=== PATIENT | male | born 1940 | race Caucasian/White ===

== ENCOUNTER 2016-10-11 09:19 | Emergency (ER) | payer OTHER ==
[~2016-10-11] VITALS: Ht 172.7 cm; Wt 85.7 kg
[2016-10-11] MEDS ORDERED: SERT25TA88 (09:36)
[2016-10-11] MEDS ORDERED: PRIM50TA6 (09:36)
[2016-10-11] MEDS ORDERED: PRAV40TA2 (09:36)
[2016-10-11] MEDS ORDERED: QUIN5TAB7 (09:36)
[2016-10-11] MEDS ORDERED: ISOS30TA4 (09:36)
[2016-10-11] MEDS ORDERED: ONDANSETRON 4 MG ORAL DISINTEGRATING TAB (S0181) PO ONE (11:00)
[2016-10-11] MEDS ORDERED: MORPHINE 4 MG/ML 1ML SYRINGE SC ONE (11:00)
--- NOTE | 2016-10-11 12:13 | REP ---
REASON: Trauma. COMPARISON: Chest 12/31/2010. Multiple views of the right ribs show a fracture involving the lateral aspect of the right 9th rib. The accompanying frontal view of the chest shows mild bilateral CP angle blunting due to low lung volumes possibly from splinting due to rib pain. There is no pneumothorax. IMPRESSION: Right 9th rib fracture. Signed by Henry Brennan DO 10/11/2016 03:58 P
[2016-10-11] MEDS ORDERED: NORCOTAB PO (12:22)
[2016-10-11 12:29] VITALS: BP 115/66
== END 2016-10-11 12:45 | disposition home or self-care (01) ==
LOC: M ED 10:22
DX: S22.31XA Fracture of one rib, right side, initial encounter for closed fracture (principal); W17.2XXA Fall into hole, initial encounter; Y92.019 Unspecified place in single-family (private) house as the place of occurrence of the external cause; Y93.89 Activity, other specified; Y99.8 Other external cause status; I11.0 Hypertensive heart disease with heart failure; F32.9 Major depressive disorder, single episode, unspecified; Z79.899 Other long term (current) drug therapy; Z88.0 Allergy status to penicillin

== ENCOUNTER 2018-03-21 09:37 | Day surgery (SDC) | payer OTHER ==
[2018-03-21] MEDS ORDERED: LR 1,000 ML IV ×3 (10:15→13:30)
[2018-03-21 10:25] LABS: HEMATOCRIT 44.4 % (42.0-52.0); MEAN CORPUSCULAR HEMOGLOBIN 31.5 pg (27.0-33.0); MEAN CORPUSCULAR HGB CONC 33.8 g/dl (32.0-36.5); MEAN CORPUSCULAR VOLUME 93.3 fl (80.0-96.0); PLATELET COUNT, AUTOMATED 157 10^3/uL (150-450); RED BLOOD COUNT 4.76 10^6/uL (4.30-6.10); RED CELL DISTRIBUTION WIDTH 12.2 % (11.5-14.5); WHITE BLOOD COUNT 4.8 10^3/uL (4.0-10.0)
[2018-03-21 10:47] LABS: ALBUMIN/GLOBULIN RATIO 1.29 (1.00-1.93); ALKALINE PHOSPHATASE 54 U/L (45-117); ALT/SGPT 17 U/L (12-78); ANION GAP 6 MEQ/L (8-16); AST/SGOT 24 U/L (7-37); BILIRUBIN,TOTAL 0.5 MG/DL (0.2-1.0); BLOOD UREA NITROGEN 18 MG/DL (7-18); CALCIUM LEVEL 9.6 MG/DL (8.8-10.2); CARBON DIOXIDE LEVEL 26 MEQ/L (21-32); CHLORIDE LEVEL 106 MEQ/L (98-107); CREATININE FOR GFR 1.14 MG/DL (0.70-1.30); GLOMERULAR FILTRATION RATE > 60.0 (>42); GLUCOSE, FASTING 96 MG/DL (70-100); POTASSIUM SERUM 4.2 MEQ/L (3.5-5.1); SODIUM LEVEL 138 MEQ/L (136-145); TOTAL PROTEIN 7.1 GM/DL (6.4-8.2)
[2018-03-21] MEDS ORDERED: PROPOFOL 200 MG/20 ML VIAL As Ordered (11:13)
[2018-03-21] MEDS ORDERED: fentaNYL 100 MCG/2 ML INJECTION (J3010) As Ordered ×2 (11:13→11:14)
[2018-03-21] MEDS ORDERED: dexameTHASONE 4 MG/ML 1ML VIAL (J1100) As Ordered (11:13)
[2018-03-21] MEDS ORDERED: ROCURONIUM BROMIDE 50 MG/5 ML VIAL As Ordered (11:13)
[2018-03-21] MEDS ORDERED: LIDOCAINE 2% INJ 100 MG/5 ML SDV (FOR ANES.) As Ordered (11:14)
[2018-03-21] MEDS: EPINEPHrine 1MG/ML INJ 30ML MD-VIAL As Ordered (12:32)
[2018-03-21] MEDS: METHYLENE BLUE 0.5% (5MG/ML) 10 ML AMP (PROVAYBLUE)(Q9968 PER 1MG) As Ordered (12:33)
[2018-03-21] MEDS: LIDOCAINE W/EPINEPHRINE 1% 20ML VIAL As Ordered (12:40)
[2018-03-21] MEDS ORDERED: METOCLOPRAMIDE INJ 10MG/2ML VIAL (J2765) IV (13:30)
[2018-03-21] MEDS ORDERED: ONDANSETRON 4MG/2ML VIAL (J2405) IV (13:30)
[2018-03-21] MEDS ORDERED: PERCOCET 5MG/325MG TAB PO (13:30)
[2018-03-21] MEDS ORDERED: fentaNYL 100 MCG/2 ML INJECTION (J3010) IV (13:30)
[2018-03-21] MEDS ORDERED: ACETAMINOPH W/CODEINE #3 TAB UD PO (13:30)
== END 2018-03-21 14:46 | disposition home or self-care (01) ==
LOC: M SDC 09:37
DX: J34.2 Deviated nasal septum (principal); J31.0 Chronic rhinitis; M95.0 Acquired deformity of nose; I10 Essential (primary) hypertension; I25.10 Atherosclerotic heart disease of native coronary artery without angina pectoris; I25.2 Old myocardial infarction; E78.00 Pure hypercholesterolemia, unspecified; K21.9 Gastro-esophageal reflux disease without esophagitis; M12.9 Arthropathy, unspecified; F41.9 Anxiety disorder, unspecified; F32.9 Major depressive disorder, single episode, unspecified; R51 Headache; J44.9 Chronic obstructive pulmonary disease, unspecified; R06.83 Snoring; G47.30 Sleep apnea, unspecified; R06.09 Other forms of dyspnea; Z88.0 Allergy status to penicillin; Z79.899 Other long term (current) drug therapy; Z79.82 Long term (current) use of aspirin; Z95.5 Presence of coronary angioplasty implant and graft; Z98.41 Cataract extraction status, right eye; Z98.42 Cataract extraction status, left eye; Z96.1 Presence of intraocular lens; Z87.891 Personal history of nicotine dependence
CPT/HCPCS: 30520

== ENCOUNTER → 2018-12-06 | Outpatient (CLI) | payer MEDICARE ==
[~2018-12-06] MED LIST: ASPI81TA85 PO; HYDR-3715 PO; IBUPROPHEN PO; ISOS30TA4 PO; PRAV40TA2; PRIM50TA6 PO; QUIN1TAB PO; ROSU5TAB5 PO; SERT25TA88 PO
--- NOTE | 2018-12-07 08:56 | REP ---
CT of the maxillofacial bones without contrast Indication: Sinusitis. Comparison: CT of the maxillofacial bones without contrast of 10/25/2017. Findings: There is overall improvement of mild mucosal thickening of the paranasal sinuses. Frontal sinuses: There is mild mucosal thickening of the right frontal sinus and frontoethmoid recess, improved. The left frontal sinus is clear. There is mild mucosal thickening of the left frontal ethmoid recess, improved. Ethmoid air cells: The right anterior ethmoid air cells are clear, improved. There is mild mucosal thickening of the left anterior ethmoid air cells, improved. The posterior ethmoid air cells are clear bilaterally, improved. The cribriform plate, medial borges of the orbits and optic canals are intact. Sphenoid sinuses: The right sphenoid sinus is clear, improved. There is mild mucosal thickening of the left sphenoid sinus, improved. The septum of the sphenoid sinus inserts in the midline. The internal carotid canal borges form a segment of the posterior lateral borges of the sphenoid sinus. Maxillary sinuses: There is minimal mucosal thickening of the left ostiomeatal unit, patent. There is mucosal thickening of the right ostiomeatal unit. The maxillary sinuses are clear bilaterally. Nasal septum: There is a mild rightward curvature of the nasal septum. The turbinates are intact. There is partial opacification of the right mastoid air cells superiorly, similar to prior. The left mastoid air cells are clear. Impression: Mild residual mucosal thickening of the paranasal sinuses. Electronically Signed by Butch Milan MD 12/07/2018 08:48 A
== END ==
LOC: M RAD 17:41
PROVIDERS: ATTEND Otolaryngology
DX: J32.4 Chronic pansinusitis (principal)

== ENCOUNTER → 2019-09-27 | Outpatient (CLI) | payer MEDICARE ==
[~2019-09-27] MED LIST changes: +SERT25TA21 PO; -SERT25TA88 PO
--- NOTE | 2019-09-27 14:30 | REPVR ---
PROCEDURE INFORMATION: Exam: CT Maxillofacial Without Contrast, Sinus Exam date and time: 09/27/2019 2:08 PM Age: 78 years old Clinical indication: Sinusitis; Chronic; Additional info: Chronic pansinusitis TECHNIQUE: Imaging protocol: CT Maxillofacial without contrast. Focus on the sinuses. Radiation optimization: All CT scans at this facility use at least one of these dose optimization techniques: automated exposure control; mA and/or kV adjustment per patient size (includes targeted exams where dose is matched to clinical indication); or iterative reconstruction. COMPARISON: CT Maxilofacial w/out contrast 12/06/2018 6:03 PM FINDINGS: Frontal sinuses: Normal. No air-fluid levels. Ethmoid air cells: Normal. No air-fluid levels. Sphenoid sinuses: Normal. No air-fluid levels. Maxillary sinuses: Normal. No air-fluid levels. Ostiomeatal units are patent. Orbits: Unremarkable. Nasal cavity/Septum: Unremarkable. Soft tissues: Unremarkable. Bones/joints: Unremarkable. IMPRESSION: Unremarkable sinuses. Electronically signed by: Thanh Del Toro On 09/27/2019 14:30:04 PM
== END ==
LOC: M RAD 13:56
PROVIDERS: ATTEND Otolaryngology
DX: J32.4 Chronic pansinusitis (principal)

== ENCOUNTER 2019-11-20 11:00 | Outpatient (RCR) | payer MEDICARE ==
[~2019-11-20 11:00] MED LIST changes: -ASPI81TA85 PO; +ASPI81TA86 PO
== END 2019-11-23 | disposition home or self-care (01) ==
LOC: M PT 11:00
PROVIDERS: ATTEND Otolaryngology
DX: M26.629 Arthralgia of temporomandibular joint, unspecified side (principal)

== ENCOUNTER 2019-12-06 08:45 | Outpatient (RCR) | payer MEDICARE | END 2019-12-24 | LOC: M PT 08:45 | PROVIDERS: ATTEND Otolaryngology | DX: M26.629 Arthralgia of temporomandibular joint, unspecified side (principal) ==

== ENCOUNTER → 2019-12-13 | Outpatient (REF) | payer MEDICARE | LOC: M LAB REF 14:10 | PROVIDERS: ATTEND Nurse Practitioner Family | DX: N39.0 Urinary tract infection, site not specified (principal) ==

== ENCOUNTER → 2020-01-31 | Outpatient (CLI) | payer MEDICARE ==
[~2020-01-31] MED LIST changes: +GASTROGRAFIN SOLUTION 30ML (Q9963) As Ordered ONE; +ISOVUE-370 76% 100ML VIAL As Ordered ONE
--- NOTE | 2020-02-06 08:12 | REP ---
CT ABDOMEN AND PELVIS WITHOUT AND WITH INTRAVENOUS (IV) CONTRAST: WITH ORAL CONTRAST HISTORY: Right lower abdominal pain. COMPARISON: No comparison abdominal CT study. CT CONTRAST DOSE: 100 mL of intravenous [id number]. CT FINDINGS: Digital preliminary military lawyer radiograph demonstrates an unremarkable bowel gas pattern. On axial CT images, the lung bases are clear. The liver is normal in size and homogeneous in texture. On the noncontrast study, liver parenchyma is somewhat more opaque than splenic parenchymal, question mild hemochromatosis. No abnormality is noted in the gallbladder or pancreas. There are accessory splenules. Normal adrenal glands are seen bilaterally. The kidneys enhance symmetrically and are morphologically intact on pre- and postcontrast images. Vascular calcification is seen. There is an infrarenal abdominal aortic aneurysm measuring 4.7 cm in greatest anteroposterior dimension x 4.3 cm in greatest right to left dimension. This does not involve the iliac arteries. There is no perianeurysmal fibrosis or hemorrhage. No retroperitoneal mass or adenopathy is seen. Small and large intestinal bowel loops are unremarkable in the abdomen and pelvis. Prostate, seminal vesicles, and urinary bladder appear intact. Prostate is mildly prominent. The appendix is not confidently identified, but there is no CT evidence to suggest appendicitis. No bony destructive lesion is seen. No abdominal wall defect is observed. IMPRESSION: No acute abdominal or pelvic abnormality. On noncontrast CT study, the liver parenchyma is higher attenuation than the spleen question hemochromatosis. No focal lesion is seen. Also noted is a 4.7 cm infrarenal abdominal aortic aneurysm without evidence of hemorrhage. MTDD
== END ==
LOC: M RAD 15:15
PROVIDERS: ATTEND Nurse Practitioner Family
DX: I71.4 Abdominal aortic aneurysm, without rupture (principal); R10.30 Lower abdominal pain, unspecified
CPT/HCPCS: 74178; Q9963; Q9967

== ENCOUNTER → 2020-03-27 | Outpatient (CLI) | payer MEDICARE ==
[~2020-03-27] MED LIST changes: -GASTROGRAFIN SOLUTION 30ML (Q9963) As Ordered ONE; -ISOVUE-370 76% 100ML VIAL As Ordered ONE
--- NOTE | 2020-03-27 10:28 | REP ---
INDICATION: UNSP ATHSCL [place] ARTERIES OF EXT, BILATERAL LEGS COMPARISON: None. TECHNIQUE: Real time porter scale and color Doppler evaluation of the bilateral lower extremity arterial vasculature using linear high frequency transducer. FINDINGS: Porter scale and color images demonstrate mild atheromatous plaquing without focal stenosis or occlusion identified. Doppler interrogation demonstrates normal biphasic and triphasic arterial wave forms and velocities bilaterally. Right LUIS: 1.2 Left LUIS: 1.1 Peak systolic velocities (cm/sec) Common femoral artery: Right 90; Left 83 Profunda femoris: Right 83; Left 109 SFA (proximal): Right 114; Left 89 SFA (mid): Right 100; Left 91 SFA (distal): Right 82; Left 83 Popliteal artery: Right 83; Left 89 BANG (prox.): Right 79; Left 83 Tibioperoneal trunk: Right 50; Left 69 LAB RN (prox.): Right 66; Left 77 LAB RN (distal): Right 63; Left 60 BANG (distal): Right 74; Left 60 IMPRESSION: Atheromatous changes without focal occlusion or stenosis. <Electronically signed by Joaquín Joyner > 03/27/20 1024
== END ==
LOC: M RAD 08:56
PROVIDERS: ATTEND Physician Assistant
DX: I70.203 Unspecified atherosclerosis of native arteries of extremities, bilateral legs (principal); R09.89 Other specified symptoms and signs involving the circulatory and respiratory systems

== ENCOUNTER → 2020-05-22 | Outpatient (CLI) | payer MEDICARE ==
--- NOTE | 2020-05-23 04:47 | REP ---
INDICATION: LUNG SCREENING COMPARISON: 10/31/2008 TECHNIQUE: Axial noncontrast images from the thoracic inlet to the upper abdomen using low-dose lung screening technique (LDCT). FINDINGS: A very fine scattered reticulonodular interstitial pattern is noted primarily involving the upper lobes (right greater than left). Scattered partially calcified pleural plaques are also identified more pronounced along the right hemithorax. Few mediastinal lymph nodes are also suggested. No acute consolidation, large nodule or mass lesion identified. No effusion. No pneumothorax. IMPRESSION: 1. Reticulonodular pattern again noted which may be slightly more prominent than prior examination. Small nodules in the right apex measure up to approximately 3 mm. These findings suggest a chronic pulmonary interstitial process and less likely acute malignancy. 2. Findings do not necessarily fit within the Lung-RADS criteria and pulmonology consultation is recommended. <Electronically signed by Joaquín Joyner > 05/23/20 [id number]
== END ==
LOC: M RAD 10:38
PROVIDERS: ATTEND Nurse Practitioner Family
DX: Z12.2 Encounter for screening for malignant neoplasm of respiratory organs (principal); F17.210 Nicotine dependence, cigarettes, uncomplicated

== ENCOUNTER → 2020-09-16 | Outpatient (CLI) | payer MEDICARE ==
[~2020-09-16] MED LIST changes: +ISOS1TAB35 PO; -ISOS30TA4 PO
--- NOTE | 2020-09-16 12:10 | REPVR ---
PROCEDURE INFORMATION: Exam: CT Abdomen And Pelvis Without Contrast Exam date and time: 09/16/2020 11:19 AM Age: 79 years old Clinical indication: Condition or disease; Other: Aaa TECHNIQUE: Imaging protocol: Computed tomography of the abdomen and pelvis without contrast. Radiation optimization: All CT scans at this facility use at least one of these dose optimization techniques: automated exposure control; mA and/or kV adjustment per patient size (includes targeted exams where dose is matched to clinical indication); or iterative reconstruction. COMPARISON: CT ABD PELVIS WITH CONTRAST 01/31/2020 5:38 PM FINDINGS: Detailed evaluation of the abdominal and pelvic viscera is somewhat limited in the absence of intravenous contrast. Inferior thorax: Interstitial prominence. Coronary artery calcification. Liver: No focal hepatic mass. Gallbladder and bile ducts: No cholelithiasis or biliary ductal dilatation. Pancreas: No pancreatic mass or ductal dilatation. Spleen: Spleen upper limits of normal in size. Adrenal glands: Unremarkable adrenals. Kidneys and ureters: 12 mm left renal cyst. No hydronephrosis. Stomach and bowel: Gastric wall thickening. Mild small bowel dilatation without a transition zone. Prominent stool, in a pattern of constipation. Diverticula, without pericolonic inflammation. Appendix: Appendix not visualized. Intraperitoneal space: No free fluid. Vasculature: Stable 4.4 cm saccular infrarenal abdominal aortic aneurysm. Prominent vascular calcification. No periaortic fluid. Lymph nodes: Subcentimeter lymph nodes. Urinary bladder: Normal bladder morphology. Reproductive: Enlarged prostate producing extrinsic compression of the bladder base. Bones/joints: Osteopenia and chronic compression deformities. Degenerative change, disc bulging, and vacuum discs. Soft tissues: Small fat containing inguinal hernias. IMPRESSION: 1. Stable 4.4 cm saccular infrarenal abdominal aortic aneurysm. 2. Gastric wall thickening. 3. Additional findings as described above. COMMENTS: Consistent with the [employer]'s Incidental Findings Committee white paper (J Am Kalyan Radiol 2018): Any incidental renal lesion less than 1 cm or classified as too small to characterize, or any incidental cystic renal lesion characterized as simple-appearing, is likely benign. No follow-up imaging is recommended for these lesions per consensus recommendations based on imaging criteria. Electronically signed by: Dami Tang On 09/16/2020 12:10:29 PM
== END ==
LOC: M RAD 11:12
PROVIDERS: ATTEND Physician Assistant
DX: I71.4 Abdominal aortic aneurysm, without rupture (principal)

== ENCOUNTER → 2020-10-24 | Outpatient (CLI) | payer MEDICARE ==
[~2020-10-24] MED LIST changes: +BAYE81TA10 PO; +CARD40TA PO; +ELIQ5TAB PO; +ENTR1TAB PO; +FLOM0.4C39 PO; +IBUP200C25 PO; +IBUP200T45 PO; +NITR4TASL SL; +PRIL20TA2 PO; +ZOLO25TA PO
== END ==
LOC: M LABSMTC 13:43
PROVIDERS: ATTEND Anesthesiology
DX: Z20.828 Contact with and (suspected) exposure to other viral communicable diseases (principal); Z11.59 Encounter for screening for other viral diseases

== ENCOUNTER 2020-10-29 13:44 | Day surgery (SDC) | payer MEDICARE, OTHER ==
[~2020-10-29] VITALS: Ht 172.7 cm; Wt 86.3 kg
[~2020-10-29 13:44] MED LIST changes: +LIDOCAINE 1% MDV 20ML VIAL SQ PRN; +VANCOMYCIN HCL 1,000 MG, VIAL MATE ADAPTER 1 EACH in NS 250 ML IV ONE
[2020-10-29] MEDS ORDERED: VANCOMYCIN 1000MG/20ML VIAL As Ordered ONE (14:07)
[2020-10-29] MEDS ORDERED: LIDOCAINE 1% MDV 20ML VIAL As Ordered ONE (14:58)
[2020-10-29] MEDS ORDERED: MIDAZOLAM INJ 2MG/2ML VIAL (J2250 PER 1MG) As Ordered ONE (15:09)
[2020-10-29] MEDS ORDERED: fentaNYL 100 MCG/2 ML INJECTION (J3010) As Ordered ONE (15:18)
--- NOTE | 2020-10-29 16:17 | RO ---
OPERATIVE NOTE DATE OF OPERATION: 10/29/2020 PREOPERATIVE DIAGNOSIS: Atrial fibrillation monitoring. POSTOPERATIVE DIAGNOSIS: Atrial fibrillation monitoring. FINDINGS: Atrial fibrillation monitoring. PROCEDURE PERFORMED: Implantation of a [employer] subcutaneous cardiac rhythm monitor. SURGEON: Mio Guerra M.D. SR. PAYROLL MANAGER: None. ANESTHESIA: Lidocaine 1% local/monitored anesthetic care. SPECIMENS: None. ESTIMATED BLOOD LOSS: Less than 1 mL. BLOOD PRODUCTS: None placed. DRAINS: None. COMPLICATIONS: None. DESCRIPTION OF PROCEDURE: The patient was prepped and draped over the sternum and left anterior chest. Lidocaine 1% was used for local anesthetic. An incision was made with a #15 blade through the skin approximately 1 cm in length at the left fourth interspace one inch lateral to the left parasternal border. The guide of the insertion tool was placed into the incision and advanced into the subcutaneous tissue parallel to the skin in a mostly caudal direction, but a bit leftward. The insertion tool was rotated 180 degrees. The punch was placed in the insertion tool and used to advance the subcutaneous cardiac rhythm monitor into the subcutaneous tissue. The punch was removed and then the insertion tube was removed leaving the subcutaneous cardiac rhythm monitor in situ. The initial R wave amplitude measured 0.20 mV. The skin was then approximated temporarily using a 4-0 Biosyn suture applied subcuticular with the free ends of the suture protruding 1 cm from both ends of the incision line through the skin. Next, three layers of Dermabond was applied. The Biosyn suture was then pulled through the incision line and removed entirely. The patient tolerated the procedure well without any immediate complications. The implantable loop recorder implanted was a [employer]ara LINQ II, Model LNQ22 with Serial No. [id number].
[2020-10-29 16:45] VITALS: BP 146/87
== END 2020-10-29 16:50 | disposition home or self-care (01) ==
LOC: M SDC 13:44
PROVIDERS: ATTEND Internal Medicine Cardiovascular Disease
DX: I48.0 Paroxysmal atrial fibrillation (principal); I25.10 Atherosclerotic heart disease of native coronary artery without angina pectoris; I25.2 Old myocardial infarction; Z79.01 Long term (current) use of anticoagulants; Z79.899 Other long term (current) drug therapy; Z87.891 Personal history of nicotine dependence; Z98.61 Coronary angioplasty status; F32.9 Major depressive disorder, single episode, unspecified; F41.9 Anxiety disorder, unspecified; N40.0 Benign prostatic hyperplasia without lower urinary tract symptoms; G47.30 Sleep apnea, unspecified; Z88.0 Allergy status to penicillin; Z88.8 Allergy status to other drugs, medicaments and biological substances
CPT/HCPCS: 33285; C1764; J2250; J3010; J3370

== ENCOUNTER → 2021-04-27 | Outpatient (CLI) | payer MEDICARE ==
[~2021-04-27] MED LIST changes: -IBUP200T45 PO; +IBUP200T46 PO; -LIDOCAINE 1% MDV 20ML VIAL SQ PRN; -VANCOMYCIN HCL 1,000 MG, VIAL MATE ADAPTER 1 EACH in NS 250 ML IV ONE
--- NOTE | 2021-04-27 11:16 | REP ---
INDICATION: ACUTE URI COMPARISON: 10/28/2008 TECHNIQUE: PA and lateral. FINDINGS: The mediastinum and cardiac silhouette are normal. The lung shaikh are clear and without acute consolidation, effusion, or pneumothorax. The skeletal structures are intact and normal. Loop recorder overlies cardiac silhouette. IMPRESSION: No acute cardiopulmonary process. <Electronically signed by Joaquín Joyner > 04/27/21 [id number]
== END ==
LOC: M PLAIMG 10:45
PROVIDERS: ATTEND Nurse Practitioner Family
DX: J06.9 Acute upper respiratory infection, unspecified (principal)

== ENCOUNTER → 2021-07-09 | Outpatient (CLI) | payer MEDICARE | LOC: M LAB 10:50 | PROVIDERS: ATTEND Internal Medicine Pulmonary Disease | DX: R91.8 Other nonspecific abnormal finding of lung field (principal) ==

== ENCOUNTER → 2021-07-30 | Outpatient (CLI) | payer MEDICARE | LOC: M WHC 13:23 | PROVIDERS: ATTEND Nurse Practitioner Family | DX: N63.31 Unspecified lump in axillary tail of the right breast (principal) ==

== ENCOUNTER → 2022-07-09 | Outpatient (CLI) | payer MEDICARE | LOC: M PLAIMG 10:14 | PROVIDERS: ATTEND Internal Medicine Pulmonary Disease | DX: R91.8 Other nonspecific abnormal finding of lung field (principal); M53.84 Other specified dorsopathies, thoracic region ==

== ENCOUNTER → 2022-07-27 | Outpatient (REF) | payer MEDICARE ==
[2022-07-27 15:12] LABS: APPEARANCE, URINE HAZY (CLEAR); BACTERIA, URINE AUTO 1+ (NEGATIVE); BILIRUBIN, URINE AUTO NEGATIVE (NEGATIVE); BLOOD, URINE BLOOD 1+ (NEGATIVE); COLOR, URINE YELLOW (YELLOW); GLUCOSE, URINE (UA) AUTO NEGATIVE (NEGATIVE); KETONE, URINE AUTO NEGATIVE (NEGATIVE); LEUKOCYTE ESTERASE, URINE AUTO 3+ (NEGATIVE); MUCUS, URINE SMALL (NEGATIVE); NITRITE, URINE AUTO POSITIVE (NEGATIVE); PROTEIN, URINE AUTO NEGATIVE (NEGATIVE); RBC, URINE AUTO 3 /HPF (0-3); SPECIFIC GRAVITY URINE AUTO 1.015 (1.002-1.035); SQUAMOUS EPITHELIAL CELL UR AU 0 /HPF (0-6); UROBILINOGEN, URINE AUTO 0.2 mg/dL (0.0-2.0); WBC, URINE AUTO 120 /HPF (0-3)
== END ==
LOC: M SMT 13:00
PROVIDERS: ATTEND Urology
DX: R31.0 Gross hematuria (principal)

== ENCOUNTER → 2022-10-28 | Outpatient (CLI) | payer MEDICARE | LOC: M RAD 07:01 | PROVIDERS: ATTEND Surgery Vascular Surgery | DX: I71.40 Abdominal aortic aneurysm, without rupture, unspecified (principal) ==

== ENCOUNTER → 2022-11-16 | Outpatient (CLI) | payer MEDICARE ==
[2022-11-16 10:12] LABS: BLOOD UREA NITROGEN 16 MG/DL (9-23); CREATININE FOR GFR 0.94 MG/DL (0.70-1.30); GLOMERULAR FILTRATION RATE > 60.0 (>35)
== END ==
LOC: M WUC 08:14
PROVIDERS: ATTEND Surgery Vascular Surgery
DX: Z01.818 Encounter for other preprocedural examination (principal)

== ENCOUNTER → 2022-11-24 | Outpatient (CLI) | payer MEDICARE ==
[~2022-11-24] MED LIST changes: +ISOVUE-370 76% 100ML VIAL As Ordered ONE
== END ==
LOC: M RAD 08:32
PROVIDERS: ATTEND Surgery Vascular Surgery
DX: I71.40 Abdominal aortic aneurysm, without rupture, unspecified (principal); I70.0 Atherosclerosis of aorta; R91.8 Other nonspecific abnormal finding of lung field
CPT/HCPCS: 71275; 74174; Q9967

== ENCOUNTER → 2023-01-13 | Outpatient (CLI) | payer MEDICARE ==
[~2023-01-13] MED LIST changes: -ISOVUE-370 76% 100ML VIAL As Ordered ONE
== END ==
LOC: M SOG 08:06
PROVIDERS: ATTEND Physician Assistant
DX: M19.031 Primary osteoarthritis, right wrist (principal); M19.032 Primary osteoarthritis, left wrist; M85.89 Other specified disorders of bone density and structure, multiple sites

== ENCOUNTER → 2023-02-07 | Outpatient (REF) | payer MEDICARE ==
[2023-02-07 18:56] LABS: HEMATOCRIT 41.8 % (42.0-52.0); HEMOGLOBIN 13.4 g/dl (13.5-17.5); MEAN CORPUSCULAR HGB CONC 32.1 g/dl (32.0-36.5); MEAN CORPUSCULAR VOLUME 96.8 fl (80.0-96.0); PLATELET COUNT, AUTOMATED 175 10^3/uL (150-450); RED BLOOD COUNT 4.32 10^6/uL (4.30-6.10); WHITE BLOOD COUNT 5.5 10^3/uL (4.0-10.0)
[2023-02-07 19:33] LABS: ALBUMIN 3.8 G/DL (3.2-5.2); ALKALINE PHOSPHATASE 55 U/L (46-116); ALT/SGPT < 9 U/L (7.0-40); AST/SGOT 13 U/L (<34); BILIRUBIN,TOTAL 0.3 MG/DL (0.3-1.2); BLOOD UREA NITROGEN 18 MG/DL (9-23); CALCIUM LEVEL 9.3 MG/DL (8.3-10.6); CARBON DIOXIDE LEVEL 28 MMOL/L (20-31); CHLORIDE LEVEL 108 MMOL/L (98-107); GLOMERULAR FILTRATION RATE > 60.0 (>35); GLUCOSE, FASTING 106 MG/DL (74-106); POTASSIUM SERUM 4.4 MMOL/L (3.5-5.1); SODIUM LEVEL 143 MMOL/L (136-145); TOTAL PROTEIN 6.5 G/DL (5.7-8.2)
== END ==
LOC: M WUC 17:44
PROVIDERS: ATTEND Student in an Organized Health Care Education/Training Program
DX: R42 Dizziness and giddiness (principal)

== ENCOUNTER → 2023-05-05 | Outpatient (CLI) | payer MEDICARE | LOC: M SOG 08:01 | PROVIDERS: ATTEND Physician Assistant | DX: M25.562 Pain in left knee (principal); M25.561 Pain in right knee ==

== ENCOUNTER → 2023-05-10 | Outpatient (CLI) | payer MEDICARE | LOC: M SOG 07:56 | PROVIDERS: ATTEND Physician Assistant | DX: M25.562 Pain in left knee (principal); M25.561 Pain in right knee; Z53.9 Procedure and treatment not carried out, unspecified reason ==

== ENCOUNTER → 2023-05-17 | Outpatient (CLI) | payer MEDICARE | LOC: M SOG 07:53 | PROVIDERS: ATTEND Physician Assistant | DX: M22.2X1 Patellofemoral disorders, right knee (principal); M22.2X2 Patellofemoral disorders, left knee; M11.261 Other chondrocalcinosis, right knee; M11.262 Other chondrocalcinosis, left knee; M25.562 Pain in left knee; M25.561 Pain in right knee ==

== ENCOUNTER → 2023-08-02 | Outpatient (REF) | payer MEDICARE ==
[2023-08-02 13:25] LABS: APPEARANCE, URINE HAZY (CLEAR); BACTERIA, URINE AUTO 3+ (NEGATIVE); BILIRUBIN, URINE AUTO NEGATIVE (NEGATIVE); BLOOD, URINE BLOOD NEGATIVE (NEGATIVE); COLOR, URINE YELLOW (YELLOW); GLUCOSE, URINE (UA) AUTO NEGATIVE (NEGATIVE); KETONE, URINE AUTO NEGATIVE (NEGATIVE); LEUKOCYTE ESTERASE, URINE AUTO 3+ (NEGATIVE); MUCUS, URINE SMALL (NEGATIVE); NITRITE, URINE AUTO NEGATIVE (NEGATIVE); PROTEIN, URINE AUTO NEGATIVE (NEGATIVE); RBC, URINE AUTO 1 /HPF (0-3); SPECIFIC GRAVITY URINE AUTO 1.014 (1.002-1.035); SQUAMOUS EPITHELIAL CELL UR AU 0 /HPF (0-6); UROBILINOGEN, URINE AUTO 0.2 mg/dL (0.0-2.0); WBC, URINE AUTO 30 /HPF (0-3)
== END ==
LOC: M SMT 12:14
PROVIDERS: ATTEND Urology
DX: Z87.440 Personal history of urinary (tract) infections (principal); Z79.899 Other long term (current) drug therapy

== ENCOUNTER 2023-12-02 10:14 | Day surgery (SDC) | payer MEDICARE ==
[~2023-12-02] VITALS: Ht 172.7 cm; Wt 83.3 kg
[~2023-12-02 10:14] MED LIST changes: +ATOR1TAB19 PO; +FLON1SPR; +LEVOTAB10 PO; +PANT40TA29 PO; +ROSU5TAB40 PO; -ROSU5TAB5 PO
[2023-12-02] MEDS: NS 1,000 ML IV ONE (10:49)
[2023-12-02] MEDS ORDERED: fentaNYL 100 MCG/2 ML INJECTION As Ordered ONE (11:06)
[2023-12-02] MEDS ORDERED: propofoL 200 MG/20 ML VIAL As Ordered ONE (11:06)
[2023-12-02] MEDS ORDERED: LIDOCAINE 2% 100MG/5ML SDV (FOR ANES.) As Ordered ONE (11:06)
[2023-12-02 11:56] VITALS: TEMP 98
[2023-12-02 12:22] VITALS: BP 126/67; O2SAT 95
== END 2023-12-02 12:34 | disposition home or self-care (01) ==
LOC: M OPP 10:14
PROVIDERS: ATTEND Surgery
DX: D12.2 Benign neoplasm of ascending colon (principal); K64.1 Second degree hemorrhoids; K92.1 Melena; K22.89 Other specified disease of esophagus; I48.91 Unspecified atrial fibrillation; Z86.74 Personal history of sudden cardiac arrest; Z95.5 Presence of coronary angioplasty implant and graft; Z87.891 Personal history of nicotine dependence; Z79.01 Long term (current) use of anticoagulants; Z79.1 Long term (current) use of non-steroidal anti-inflammatories (NSAID); Z79.83 Long term (current) use of bisphosphonates; Z79.82 Long term (current) use of aspirin; Z79.899 Other long term (current) drug therapy; Z88.0 Allergy status to penicillin; Z88.8 Allergy status to other drugs, medicaments and biological substances
CPT/HCPCS: 43235; 45380; 88305; J3010

== ENCOUNTER → 2024-01-12 | Outpatient (CLI) | payer MEDICARE | LOC: M RAD 10:04 | PROVIDERS: ATTEND Surgery | DX: I71.43 Infrarenal abdominal aortic aneurysm, without rupture (principal) ==

== ENCOUNTER → 2024-01-23 | Outpatient (CLI) | payer MEDICARE ==
[2024-01-23 16:07] LABS: BLOOD UREA NITROGEN 20 MG/DL (9-23); CREATININE FOR GFR 0.96 MG/DL (0.70-1.30); GLOMERULAR FILTRATION RATE > 60.0 (>35)
== END ==
LOC: M LAB 14:51
PROVIDERS: ATTEND Physician Assistant
DX: R10.9 Unspecified abdominal pain (principal)

== ENCOUNTER → 2024-01-24 | Outpatient (CLI) | payer MEDICARE ==
[~2024-01-24] MED LIST changes: +GASTROGRAFIN SOLUTION 30ML ONE; +ISOVUE-370 76% 100ML VIAL ONE
== END ==
LOC: M PLAIMG 11:05
PROVIDERS: ATTEND Physician Assistant
DX: R10.9 Unspecified abdominal pain (principal); K22.89 Other specified disease of esophagus; K63.5 Polyp of colon; I71.43 Infrarenal abdominal aortic aneurysm, without rupture
CPT/HCPCS: 74178; Q9963; Q9967

== ENCOUNTER → 2024-01-26 | Outpatient (CLI) | payer MEDICARE ==
[~2024-01-26] MED LIST changes: -GASTROGRAFIN SOLUTION 30ML ONE; -ISOVUE-370 76% 100ML VIAL ONE
== END ==
LOC: M EKG 09:19
PROVIDERS: ATTEND Registered Nurse
DX: R42 Dizziness and giddiness (principal)

== ENCOUNTER → 2024-02-03 | Outpatient (CLI) | payer MEDICARE | LOC: M PLAIMG 14:23 | PROVIDERS: ATTEND Registered Nurse | DX: I77.810 Thoracic aortic ectasia (principal); I08.3 Combined rheumatic disorders of mitral, aortic and tricuspid valves ==

== ENCOUNTER → 2024-03-29 | Outpatient (REF) | payer MEDICARE ==
[~2024-03-29] MED LIST changes: -ROSU5TAB40 PO; +ROSU5TAB49 PO
== END ==
LOC: M LAB REF 16:53
PROVIDERS: ATTEND Nurse Practitioner Family
DX: R30.9 Painful micturition, unspecified (principal)

== ENCOUNTER → 2024-05-01 | Outpatient (REF) | payer MEDICARE | LOC: M LAB REF 17:18 | PROVIDERS: ATTEND Nurse Practitioner Family | DX: N39.0 Urinary tract infection, site not specified (principal) ==

== ENCOUNTER → 2024-06-01 | Outpatient (CLI) | payer MEDICARE | LOC: M EKG 09:13 | PROVIDERS: ATTEND Registered Nurse | DX: I48.91 Unspecified atrial fibrillation (principal) ==

== ENCOUNTER → 2024-08-01 | Outpatient (REF) | payer MEDICARE ==
[~2024-08-01] MED LIST changes: -FLOM0.4C39 PO; +TAMS-18 PO
[2024-08-01 13:15] LABS: APPEARANCE, URINE CLEAR (CLEAR); BACTERIA, URINE AUTO NEGATIVE (NEGATIVE); BILIRUBIN, URINE AUTO NEGATIVE (NEGATIVE); BLOOD, URINE BLOOD NEGATIVE (NEGATIVE); COLOR, URINE YELLOW (YELLOW); GLUCOSE, URINE (UA) AUTO NEGATIVE (NEGATIVE); KETONE, URINE AUTO NEGATIVE (NEGATIVE); LEUKOCYTE ESTERASE, URINE AUTO NEGATIVE (NEGATIVE); MUCUS, URINE SMALL (NEGATIVE); NITRITE, URINE AUTO NEGATIVE (NEGATIVE); PROTEIN, URINE AUTO NEGATIVE (NEGATIVE); RBC, URINE AUTO 2 /HPF (0-3); SPECIFIC GRAVITY URINE AUTO 1.017 (1.002-1.035); SQUAMOUS EPITHELIAL CELL UR AU 0 /HPF (0-6); UROBILINOGEN, URINE AUTO 0.2 mg/dL (0.0-2.0); WBC, URINE AUTO 1 /HPF (0-3)
== END ==
LOC: M SMT 12:48
PROVIDERS: ATTEND Urology
DX: Z87.440 Personal history of urinary (tract) infections (principal); Z79.899 Other long term (current) drug therapy
CPT/HCPCS: 51798; 81001; 87086; G0463

== ENCOUNTER → 2025-02-25 | Outpatient (CLI) | payer MEDICARE ==
[~2025-02-25] MED LIST changes: -PRAV40TA2; +PRAV40TA85
== END ==
LOC: M EKG 08:50
PROVIDERS: ATTEND Nurse Practitioner Family
DX: I49.1 Atrial premature depolarization (principal)